=== PATIENT | male | born 1970 | race Caucasian/White ===

== ENCOUNTER 2017-02-13 18:06 | Emergency (ER) | payer OTHER ==
--- NOTE | 2017-02-13 18:31 | EDM.PDOC ---
ED HPI GENERAL MEDICAL PROBLEM - General Chief Complaint: Lower Extremity Injury/Pain Stated Complaint: PAIN LT TOE Time Seen by Provider: 02/13/17 18:12 - History of Present Illness INITIAL COMMENTS - FREE TEXT/NARRATIVE: HISTORY AND PHYSICAL: History of present illness: The patient is a 46-year-old male who presents with complaints of pain to his left great toe which started yesterday after a piece of steel fell onto it. He denies other toe injuries and the remainder of the foot is also nontender. He did elevate the area and has taken one dose of Tylenol and ibuprofen but is here for evaluation. As no other systemic complaints and no other complaints of injuries as a result of these events yesterday Review of systems: As per history of present illness and below otherwise all systems reviewed and negative. Past medical history: As per history of present illness and as reviewed below otherwise noncontributory. Surgical history: As per history of present illness and as reviewed below otherwise noncontributory. Social history: No reported history of drug or alcohol abuse. Family history: As per history of present illness and as reviewed below otherwise noncontributory. Physical exam: General: Well-developed well-nourished male mildly overweight nontoxic-appearing HEENT: Atraumatic, normocephalic, negative for conjunctival pallor or scleral icterus, mucous membranes moist, throat clear, neck supple, nontender, trachea midline. Lungs: Clear to auscultation, breath sounds equal bilaterally, chest nontender. Heart: S1S2, regular, negative for clicks, rubs, or JVD. Abdomen: Soft, nondistended, nontender. NABS Pelvis: Stable nontender. Genitourinary: Deferred. Rectal: Deferred. Extremities: Atraumatic except for the left great toe which is diffusely ecchymotic and swollen and mildly tender at the first phalanx area but not at the MTP. The remainder of the foot is nontender without bony deformities as are toes 2 through 5. Proximally there is no tenderness or deformity the ankle leg or hip. The legs are, negative for cords or calf pain. Neurovascular unremarkable. Neuro: Awake, alert, oriented. Cranial nerves II through XII unremarkable. Cerebellum unremarkable. Motor and sensory unremarkable throughout. Exam nonfocal. Diagnostics: X-ray left great toe Therapeutics: Patient deferred medications Steve tape toes postop shoe Impression: Left great toe fracture Definitive disposition and diagnosis as appropriate pending reevaluation and review of above. - Related Data Allergies Allergy/AdvReac Type Severity Reaction Status Date / Time No Known Allergies Allergy Verified 02/13/17 18:15 Home Meds: Home Meds . [No Known Home Meds] 02/13/17 [History] Past Medical History - Past Health History Medical/Surgical History: Denies Medical/Surgical History HEENT History: Reports: None Cardiovascular History: Reports: None Respiratory History: Reports: None Gastrointestinal History: Reports: None Genitourinary History: Reports: None Musculoskeletal History: Reports: None Neurological History: Reports: None Psychiatric History: Reports: None Endocrine/Metabolic History: Reports: Other (See Below) Other Endocrine/Metabolic History: Hypoglycemia Hematologic History: Reports: None Immunologic History: Reports: None Oncologic (Cancer) History: Reports: None Dermatologic History: Reports: None - Infectious Disease History Infectious Disease History: Reports: None - Past Surgical History Head Surgeries/Procedures: Reports: None Musculoskeletal Surgical History: Reports: Other (See Below) Other Musculoskeletal Surgeries/Procedures:: left leg surgery Social & Family History - Family History Family Medical History: Noncontributory - Tobacco Use Smoking Status *Q: Never Smoker Years of Tobacco use: 25 Packs/Tins Daily: 2 Used Tobacco, but Quit: No Second Hand Smoke Exposure: Yes - Caffeine Use Caffeine Use: Reports: Coffee Caffeine Use Comment: 10 cups daily - Alcohol Use Days Per Week of Alcohol Use: 1 Number of Drinks Per Day: 4 Total Drinks Per Week: 4 - Recreational Drug Use Recreational Drug Use: No Review of Systems - Review of Systems Review Of Systems: ROS reveals no pertinent complaints other than HPI. Trauma Exam - Physical Exam Exam: See Below (See dictation) Course - Vital Signs Last Recorded V/S: Last Vital Signs Temp 36.1 C 02/13/17 18:16 Pulse 51 L 02/13/17 18:16 Resp 18 02/13/17 18:16 BP 124/88 02/13/17 18:16 Pulse Ox 95 02/13/17 18:16 - Orders/Labs/Meds Orders: Active Orders 24 hr Category Date Time Status Toes Great Toe Lt TA [CR] Stat Exams 02/13/17 18:27 Taken DME for Discharge [COMM] Stat Oth 02/13/17 19:01 Ordered Departure - Departure Time of Disposition: 19:02 Disposition: Home, Self-Care 01 Condition: good Clinical Impression: Fracture of toe of left foot Qualifiers: Encounter type: initial encounter Toe: great toe Fracture type: closed Phalanx : proximal Fracture alignment: displaced Qualified Code(s): S92.412A - Displaced fracture of proximal phalanx of left great toe, initial encounter for closed fracture - Discharge Information Forms: ED Department Discharge Additional Instructions: The following information is given to patients seen in the emergency department who are being discharged to home. This information is to outline your options for follow-up care. We provide all patients seen in our emergency department with a follow-up referral. The need for follow-up, as well as the timing and circumstances, are variable depending upon the specifics of your emergency department visit. If you don't have a primary care physician on staff, we will provide you with a referral. We always advise you to contact your personal physician following an emergency department visit to inform them of the circumstance of the visit and for follow-up with them and/or the need for any referrals to a consulting specialist. The emergency department will also refer you to a specialist when appropriate. This referral assures that you have the opportunity for followup care with a specialist. All of these measure are taken in an effort to provide you with optimal care, which includes your followup. Under all circumstances we always encourage you to contact your private physician who remains a resource for coordinating your care. When calling for followup care, please make the office aware that this follow-up is from your recent emergency room visit. If for any reason you are refused follow-up, please contact the [facility] emergency department at and ask to speak to the emergency department charge nurse. [facility] Specialty clinic- Podiatry [address] [place] [id number] Fax: [phone] Dr Ginger Norris [address] [place] [address] [id number] [facility] Primary care- Internal Medicine and Family [facility] [address] [place] [address] Ice and elevate the toe is much possible and wear postop shoe. Please call and followup with one of our regulatory affairs portfolio leader for further care and evaluation and return to ER as needed and as discussed. Use [id number] Tylenol or Profen as needed and add the stronger pain medication but only take that while you're at home - My Orders Last 24 Hours: My Active Orders 02/13/17 18:27 Toes Great Toe Lt TA [CR] Stat 02/13/17 19:01 DME for Discharge [COMM] Stat - Assessment/Plan Last 24 Hours: My Active Orders 02/13/17 18:27 Toes Great Toe Lt TA [CR] Stat 02/13/17 19:01 DME for Discharge [COMM] Stat
[2017-02-13 19:43] VITALS: BP 118/77
--- NOTE | 2017-02-14 10:16 | CR ---
EXAM DATE: 02/13/17 PATIENT'S AGE: 46 Patient: EDWINA ANTHONY Facility: [place], [place] Site . Site : [id number] Study: XRay Extremity great toe [id number]/17/2017 6:52:26 PM Ordering Physician: Cheryl Dan Final Report: INDICATION: trauma, heavy object fell on toe FINDINGS: Three views of the left toes focusing on the 1st digit show an acute fracture of the midportion of the left 1st proximal phalanx. No other evidence of acute fracture or dislocation. No other bony or soft tissue abnormalities identified. Dictated by Anthony Alexander MD @ 02/13/2017 7:13:45 PM Dictated by: Anthony Alexander MD @ 02/13/2017 19:14:19 (Electronic Signature) Report Signed by Proxy. MTDRachelle
== END 2017-02-13 19:37 | disposition home or self-care (01) ==
LOC: MW.ED 18:06
DX: S92.412A Displaced fracture of proximal phalanx of left great toe, initial encounter for closed fracture (principal); Z98.890 Other specified postprocedural states; W20.8XXA Other cause of strike by thrown, projected or falling object, initial encounter; Y92.69 Other specified industrial and construction area as the place of occurrence of the external cause; Y99.0 Civilian activity done for income or pay
CPT/HCPCS: 73660-26-TA; 73660-TA; 99283

== ENCOUNTER 2017-05-01 09:42 | Day surgery (SDC) | payer OTHER ==
[~2017-05-01 09:42] MED LIST: Lactated Ringers 1,000 ML IV SCH; ceFAZolin 2 GM in Premix Bag 1 BAG IV ONE
--- NOTE | 2017-05-01 10:45 | PCM.PREANE ---
Preanesthetic Assessment - Anesthesia/Transfusion/Family Hx Anesthesia History: Prior Anesthesia Without Reaction Family History of Anesthesia Reaction: No Transfusion History: No Prior Transfusion(s) Intubation History: Unknown - Review of Systems General: No Symptoms Pulmonary: No Symptoms Cardiovascular: No Symptoms Gastrointestinal: No Symptoms Neurological: No Symptoms Other: Reports: None - Physical Assessment NPO Status Date: 04/30/17 NPO Status Time: 22:00 O2 Sat by Pulse Oximetry: 93 Respiratory Rate: 16 Vital Signs: Last Vital Signs Temp 36.3 C 05/01/17 10:24 Pulse 51 L 05/01/17 10:24 Resp 16 05/01/17 10:24 BP 133/81 05/01/17 10:24 Pulse Ox 93 L 05/01/17 10:24 Height: 1.73 m Weight: 109.769 kg ASA Class: 2 Mental Status: Alert & Oriented x3 Airway Class: Mallampati = 2 Dentition: Reports: Dentures (upper and lower) Thyro-Mental Finger Breadths: 3 Mouth Opening Finger Breadths: 3 ROM/Head Extension: Full Lungs: Clear to Auscultation, Normal Respiratory Effort Cardiovascular: Regular Rate, Regular Rhythm - Allergies Allergies/Adverse Reactions: Allergies Allergy/AdvReac Type Severity Reaction Status Date / Time No Known Allergies Allergy Verified 04/29/17 15:32 - Blood Blood Available: No - Anesthesia Plan Pre-Op Medication Ordered: None - Acknowledgements Anesthesia Type Planned: General Anesthesia Pt an Appropriate Candidate for the Planned Anesthesia: Yes Alternatives and Risks of Anesthesia Discussed w Pt/Guardian: Yes Pt/Guardian Understands and Agrees with Anesthesia Plan: Yes PreAnesthesia Questionnaire - Past Health History Medical/Surgical History: Denies Medical/Surgical History HEENT History: Reports: None Other HEENT History: wears glasses, has upper and lower dentures, hx of fx nose Cardiovascular History: Reports: Other (See Below) Other Cardiovascular History: pre-op EKG states " old anteroseptal infarct "....consult with Dr. Rachelle liang Respiratory History: Reports: None Gastrointestinal History: Reports: None Genitourinary History: Reports: None Musculoskeletal History: Reports: Arthritis Other Musculoskeletal History: hx of fx left leg and some fingers Neurological History: Reports: None Psychiatric History: Reports: None Endocrine/Metabolic History: Reports: Hypothyroidism, Obesity/BMI 30+ Other Endocrine/Metabolic History: Hypoglycemia Hematologic History: Reports: None Immunologic History: Reports: None Oncologic (Cancer) History: Reports: None Dermatologic History: Reports: None - Infectious Disease History Infectious Disease History: Reports: None - Past Surgical History Head Surgeries/Procedures: Reports: None HEENT Surgical History: Reports: None Cardiovascular Surgical History: Reports: None GI Surgical History: Reports: Appendectomy Male Surgical History: Reports: None Musculoskeletal Surgical History: Reports: ORIF Other Musculoskeletal Surgeries/Procedures:: left leg above ankle (has hardware) - SUBSTANCE USE Smoking Status *Q: Former Smoker (quit smoking 07/15) Tobacco Use Within Last Twelve Months: Cigarettes Second Hand Smoke Exposure: Yes Days Per Week of Alcohol Use: 1 Number of Drinks Per Day: 4 Total Drinks Per Week: 4 Recreational Drug Use History: No - HOME MEDS Home Medications: Home Meds Levothyroxine [Synthroid] 88 mcg PO DAILY 04/29/17 [History] - CURRENT (IN HOUSE) MEDS Current Meds: Current Medications Lactated Ringer's (Ringers, Lactated) 1,000 mls @ 125 mls/hr IV [facility] Last Admin: 05/01/17 10:21 Dose: 125 mls/hr Discontinued Medications Cefazolin Sodium/Dextrose 2 gm (/ Premix) 50 mls @ 100 mls/hr IV ONETIME ONE Stop: 04/30/17 23:25
[2017-05-01] MEDS ORDERED: Lidocaine 2% 5 ML SDV ONE (11:13)
[2017-05-01] MEDS ORDERED: Midazolam 1 MG/ML 2 ML SDV ONE (11:14)
[2017-05-01] MEDS ORDERED: fentaNYL 100 MCG/2 ML SDV ONE (11:14)
[2017-05-01] MEDS ORDERED: fentaNYL 250 MCG/5 ML SDV ONE (11:14)
[2017-05-01] MEDS ORDERED: Propofol 200 MG/20 ML SDV ONE ×2 (11:14→14:01)
[2017-05-01] MEDS ORDERED: Ondansetron 4 MG/2 ML SDV ONE (11:18)
[2017-05-01] MEDS ORDERED: Ketorolac 30 MG/ML SDV ONE (11:18)
[2017-05-01] MEDS ORDERED: Sodium Chloride 0.9% 20 ML ONE (11:19)
[2017-05-01] MEDS ORDERED: ceFAZolin 1 GM Vial ONE (11:19)
[2017-05-01] MEDS ORDERED: Bupivacaine 0.5% 30 ML SDV ONE (12:55)
[2017-05-01] MEDS ORDERED: fentaNYL 100 MCG/2 ML SDV IVPUSH PRN (13:56)
--- NOTE | 2017-05-01 14:01 | PN ---
IDENTIFICATION: The patient is a 46-year-old male. DATE OF SURGERY: May 01, 2017. PREOPERATIVE DIAGNOSIS: Displaced fracture of the proximal phalanx of the hallux of the left foot. PLANNED PROCEDURE: Open reduction with internal fixation of the displaced fracture of proximal phalanx of the left foot. CONSENT: Signed and in the chart. ANESTHESIA: General. The patient confirms n.p.o. since midnight. HISTORY AND PHYSICAL: Completed by Dr. Jimeenz, who is the patient's skeiner, with no contraindications to surgery. ALLERGIES: No known allergies. CURRENT MEDICATIONS: Levothyroxine sodium 88 mcg oral tablet, one tablet daily. MEDICAL HISTORY: No significant past medical history other than surgical history, which is a history of appendectomy. LABORATORY DATA: Labs were last taken on March 13, 2017. Urinalysis was unremarkable. Red blood cell count 4.65, white blood cell count 4.56, hemoglobin 14.9, and hematocrit 44.3. PTT 26.8 seconds. Sodium 141, potassium 4.3, chloride 109, CO2 24, BUN 20, creatinine 1.2, and random glucose 81. The patient had an unremarkable chest x-ray. 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 After further assessment, skeiner deemed the patient to be low risk for this intermediate risk surgery and no further cardiac testing was necessary. The patient is a smoker and has been counseled on that. Patient presents for ORIF of proximal phalanx of left hallux. No contraindications to surgery noted and no guarantees expressed or implied. GERONIMO ENG /[id number] MTDD
--- NOTE | 2017-05-01 15:05 | PCM.OPNOTE ---
- General Post-Op/Procedure Note Date of Surgery/Procedure: 05/01/17 Operative Procedure(s): ORIF left hallux proximal phalanx fracture Findings: consistent with diagnosis Pre Op Diagnosis: left hallux proximal phalanx fracture Post-Op Diagnosis: hallux proximal phalanx fracture Anesthesia Technique: General LMA Primary Surgeon: Marcio Norris Anesthesia Provider: Ludwig Florez Pathology: none EBL in mLs: 5 Complications: none Condition: Good Free Text/Narrative:: materials: 4-0 vicryl, 4-0 prolene, 3.5 x 16 mm Minco non-locking screw, fully threaded injectables: 6 cc 0.5% marcaine plain
--- NOTE | 2017-05-01 15:40 | PCM.POSTAN ---
POST ANESTHESIA ASSESSMENT - MENTAL STATUS Mental Status: Alert - RESPIRATORY Respiratory Status: Respiratory Rate WNL, Airway Patent, O2 Saturation Stable - CARDIOVASCULAR CV Status: Pulse Rate WNL, Blood Pressure Stable, Elevated Pulse Rate - GASTROINTESTINAL GI Status: No Symptoms - POST OP HYDRATION Hydration Status: Adequate & Stable - OBSERVATIONS Free Text/Narrative:: NO anesthesia related issues at this time.
--- NOTE | 2017-05-01 15:57 | PCM48HPAN ---
Post Anesthesia Note - EVALUATION WITHIN 48HRS OF ANESTHETIC Vital Signs in Normal Range: Yes Patient Participated in Evaluation: Yes Respiratory Function Stable: Yes Airway Patent: Yes Cardiovascular Function Stable: Yes Hydration Status Stable: Yes Pain Control Satisfactory: Yes Nausea and Vomiting Control Satisfactory: Yes Mental Status Recovered: Yes - COMMENTS/OBSERVATIONS Free Text/Narrative:: Pt comfortable and no anesthesia related issues.
--- NOTE | 2017-05-01 16:26 | CR ---
EXAMINATION: Left foot HISTORY: ORIF COMPARISON: 02/13/2017 TECHNIQUE: 2 views FINDINGS/IMPRESSION: Operative control films demonstrate a single screw fixating a fracture through the mid aspect of the proximal first phalanx.
[2017-05-01 16:37] VITALS: BP 112/84
--- NOTE | 2017-05-02 01:01 | OR ---
SURGEON: Marcio Norris DPM DATE OF PROCEDURE: 05/01/2017 IDENTIFICATION: The patient is a 46-year-old male. PREOPERATIVE DIAGNOSIS: Fracture of the proximal phalanx of the hallux left foot. POSTOPERATIVE DIAGNOSIS: Fracture of the proximal phalanx of the hallux left foot. PROCEDURE: Open reduction and internal fixation of fracture of the proximal phalanx of the hallux left foot. ANESTHESIA: General. COMPLICATIONS: None. SPECIMENS: None. ESTIMATED BLOOD LOSS: 5 mL. MATERIALS: 4-0 Vicryl, 3-0 Prolene, and one Sutter 3.5 mm x 16 mm nonlocking screw. INJECTABLES: 6 mL of 0.5% Marcaine plain. INDICATIONS FOR THE PROCEDURE: The patient is a 46-year-old male, who had a workplace injury resulting in a displaced fracture at the time of his left great toe. He was initially seen by me in the office in approximately 1-1/2 to 2 months ago and closed reduction was attempted but deemed to be insufficient, and I strongly advised the patient that he would recover optimally and faster with surgical treatment. The patient initially deferred surgery and later due to pain and lack of progress in healing, opted for surgery and was referred to the agricultural produce sorter for further evaluation and a cardiac clearance. Despite the fact that the patient was now partially healed, this fracture in a suboptimal position, surgical intervention and reinforcement across the fracture line with the screw is thought to offer the patient the best option for a more functional and less painful toe. DESCRIPTION OF THE PROCEDURE: The patient was brought to the operating room and underwent general anesthesia without any significant difficulty. He was placed in a supine position on the operating table and a tourniquet over the distal leg just above the malleoli was placed around the left leg. The left lower extremity was prepped in normal fashion, limited to the foot area of the left foot and it was draped appropriately. Tourniquet was inflated to a pressure of 250 mmHg. The dorsum of the left great toe had previously been marked with a marking pen prior to inflation of the tourniquet and a linear incision was made on the dorsum of the left great toe beginning at the 1st metatarsophalangeal joint and extending to the interphalangeal joint of the toe. The incision line was placed just medial to the extensor hallucis longus tendon. Dissection was carried down to the level of bone with care being taken to retract the tendon away. The tendon itself was undermined using sharp and blunt dissection to enable better visualization of the fracture site. I determined that the fracture site was partially healed and in an offset position with a defect now present on the medial and lateral sides of the bone of the proximal phalanx of the hallux of the left foot. However due to the approximation of the bone that has taken place over the last two months since the injury, I determined that reinforcing the bone was the best approach and that this should be done with a single lag screw. A screw hole was drilled from distal medial to proximal lateral through the proximal phalanx of the hallux of the left foot and after measuring a 3.5 mm x 16 mm screw was inserted. We should also note that prior to this all, nonviable tissue and bone was debrided from the fracture site on both the medial and lateral aspect as well as on the superior aspect as well to a small degree. The placement of the screw was verified with intraoperative fluoroscopy and judged to be excellent. The entire area was flushed with copious amounts of normal saline and the area was dabbed dry in preparation for layered closure. The closure was obtained with 4-0 Vicryl suture followed by 4-0 Prolene sutures over the skin. A 6 mL of 0.5% Marcaine plain was infiltrated above the surgical site and the site was dressed with Betadine-soaked Xeroform gauze, 4x4 gauze, Kerlix roll, and an Ren bandage. The patient had a prompt hyperemic response following deflation of the tourniquet of the left foot. The patient was brought to the recovery room in stable condition. Then, the patient will be discharged with written and verbal instructions for care of the left foot and follow up in my office. GERONIMO / ALBERTINA /[id number] MALA
== END 2017-05-01 16:15 | disposition home or self-care (01) ==
LOC: MW.SDS 09:42
PROVIDERS: ATTEND Podiatrist Foot & Ankle Surgery
DX: S92.412A Displaced fracture of proximal phalanx of left great toe, initial encounter for closed fracture (principal); F41.9 Anxiety disorder, unspecified; E03.9 Hypothyroidism, unspecified; Z90.49 Acquired absence of other specified parts of digestive tract; Z87.891 Personal history of nicotine dependence; Z79.899 Other long term (current) drug therapy; W22.8XXA Striking against or struck by other objects, initial encounter
CPT/HCPCS: 28505; 76000; J0690; J1885; J2250; J2405; J3010; J7120; 01480; C1713; J2704

== ENCOUNTER 2019-07-21 02:24 | Emergency (ER) | payer BC ==
--- NOTE | 2019-07-21 02:34 | EDM.PDOC ---
ED HPI GENERAL MEDICAL PROBLEM - General Chief Complaint: Chest Pain Stated Complaint: POSSIBLE BROKEN RIBS Time Seen by Provider: 07/21/19 02:30 - History of Present Illness INITIAL COMMENTS - FREE TEXT/NARRATIVE: HISTORY AND PHYSICAL: History of present illness: Patient's 48-year-old white male presents with concern of right rib injury this occurred with an associated fall tonight he denies any head or neck pain or trauma denies shortness of breath nausea vomiting abdominal pain fever chills or other concern Review of systems: As per history of present illness and below otherwise all systems reviewed and negative. Past medical history: As per history of present illness and as reviewed below otherwise noncontributory. Surgical history: As per history of present illness and as reviewed below otherwise noncontributory. Social history: No reported history of drug or alcohol abuse. Family history: As per history of present illness and as reviewed below otherwise noncontributory. Physical exam: HEENT: Atraumatic, normocephalic, pupils reactive, negative for conjunctival pallor or scleral icterus, mucous membranes moist, throat clear, neck supple, nontender, trachea midline. Lungs: Clear to auscultation, breath sounds equal bilaterally, chest nonlocalized tenderness right ribs in the midaxillary line 4,5'6 region. No crepitation or point tenderness Heart: S1S2, regular, negative for clicks, rubs, or JVD. Abdomen: Soft, nondistended, nontender. Negative for masses or hepatosplenomegaly. Negative for costovertebral tenderness. Pelvis: Stable nontender. Genitourinary: Deferred. Rectal: Deferred. Extremities: Atraumatic, negative for cords or calf pain. Neurovascular unremarkable. Neuro: Awake, alert, oriented. Cranial nerves II through XII unremarkable. Cerebellum unremarkable. Motor and sensory unremarkable throughout. Exam nonfocal. Diagnostics: X-ray chest with right ribs Therapeutics: Tylenol 1 g by mouth Impression: #1 right rib injury Definitive disposition and diagnosis as appropriate pending reevaluation and review of above. Right Chest Pain Score (Numeric/FACES): 2 - Related Data Allergies Allergy/AdvReac Type Severity Reaction Status Date / Time No Known Allergies Allergy Verified 07/21/19 02:41 Home Meds: Home Meds Levothyroxine [Synthroid] 100 mcg PO DAILY 04/29/17 [History] Past Medical History - Past Health History Medical/Surgical History: Denies Medical/Surgical History HEENT History: Reports: None Other HEENT History: wears glasses, has upper and lower dentures, hx of fx nose Cardiovascular History: Reports: None Other Cardiovascular History: pre-op EKG states " old anteroseptal infarct "....consult with Dr. Rachelle liang Respiratory History: Reports: None Gastrointestinal History: Reports: None Genitourinary History: Reports: None Musculoskeletal History: Reports: None Other Musculoskeletal History: hx of fx left leg and some fingers Neurological History: Reports: None Psychiatric History: Reports: None Endocrine/Metabolic History: Reports: Other (See Below) Other Endocrine/Metabolic History: Hypoglycemia Hematologic History: Reports: None Immunologic History: Reports: None Oncologic (Cancer) History: Reports: None Dermatologic History: Reports: None - Infectious Disease History Infectious Disease History: Reports: None - Past Surgical History Musculoskeletal Surgical History: Reports: Other (See Below) Social & Family History - Family History Family Medical History: Noncontributory - Caffeine Use Caffeine Use: Reports: Coffee Caffeine Use Comment: 10 cups daily ED ROS GENERAL - Review of Systems Review Of Systems: ROS reveals no pertinent complaints other than HPI. ED EXAM, GENERAL - Physical Exam Exam: See Below (See dictation) Course - Vital Signs Last Recorded V/S: Last Vital Signs Temp 36.1 C 07/21/19 03:45 Pulse 85 07/21/19 03:45 Resp 18 07/21/19 03:45 BP 112/56 L 07/21/19 03:45 Pulse Ox 94 L 07/21/19 03:45 Departure - Departure Time of Disposition: 22:50 Disposition: Home, Self-Care 01 Clinical Impression: Rib contusion - Discharge Information Instructions: Rib Contusion Referrals: PCP,None [Primary Care Provider] - Forms: ED Department Discharge
--- NOTE | 2019-07-21 03:21 | CR ---
INDICATION: Pain after fall TECHNIQUE: Chest and right ribs 3 views, 4 films. COMPARISON: None FINDINGS: Cardiovascular and mediastinum: Normal heart size with mild aortic tortuosity. Lungs and pleural spaces: Lungs are clear. No sign of infiltrate or mass. No sign of pleural effusion. No pneumothorax. Bones and soft tissues: Detailed oblique images of the right ribs demonstrate no fractures or bone lesions. IMPRESSION: Unremarkable chest and right ribs. Dictated by Edwar Knutson MD @ Jul 21 2019 3:17AM Signed by Dr. Edwar Knutson @ Jul 21 2019 3:19AM
[2019-07-21 03:53] VITALS: BP 112/56; PULSE 85
== END 2019-07-21 03:45 | disposition home or self-care (01) ==
LOC: MW.ED 02:24
DX: S20.211A Contusion of right front wall of thorax, initial encounter (principal); W18.30XA Fall on same level, unspecified, initial encounter
CPT/HCPCS: 71101-26-RT; 71101-RT; 99283-25

== ENCOUNTER 2019-12-08 20:34 | Observation (INO) | payer BC ==
--- NOTE | 2019-12-08 20:55 | EDM.PDOC ---
ED HPI GENERAL MEDICAL PROBLEM - General Chief Complaint: Neurological Problem Stated Complaint: EMS ARRIVAL - SEIZURE Time Seen by Provider: 12/08/19 20:44 Source of Information: Reports: Patient, Family History Limitations: Reports: No Limitations - History of Present Illness INITIAL COMMENTS - FREE TEXT/NARRATIVE: 49-year-old male past medical history of appendicitis, thyroid disease taking 100 mcg of thyroxine daily presenting with seizure-like activity. Patient's spouse reports that they were watching TV and the patient had a 5 or 10-minute tonic-clonic type of seizure. This resolved about the time that EMS arrived after that he was somewhat combative and was given 10 mg of Haldol, 50 mg of Benadryl, and several milligrams of Ativan. Patient is awake and conversational the emergency department. The patient is amnestic to the event. Patient denies any current chest pain, headache, vision changes, weakness, numbness, confusion, paresthesia, change in bowel or bladder habits. Patient denies any incontinence. Patient denies any history of seizures and denies any recent trauma. His spouse corroborates this. His spouse however endorses 2 or 3 episodes a year of what they call "dj vu" where the patient stares off into space and is difficult to communicate with. These have been less frequent in the last year and it been present for about 4 years in total. The patient has not previously seen a neurologist. 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 - Related Data Allergies Allergy/AdvReac Type Severity Reaction Status Date / Time No Known Allergies Allergy Verified 12/09/19 02:27 Home Meds: Home Meds Levothyroxine [Synthroid] 100 mcg PO DAILY 04/29/17 [History] levETIRAcetam [Keppra] 500 mg PO BID #60 tablet 12/09/19 [Rx] Past Medical History - Past Health History Medical/Surgical History: Denies Medical/Surgical History HEENT History: Reports: None Other HEENT History: wears glasses, has upper and lower dentures, hx of fx nose Cardiovascular History: Reports: None Other Cardiovascular History: pre-op EKG states " old anteroseptal infarct "....consult with Dr. Rachelle liang Respiratory History: Reports: None Gastrointestinal History: Reports: None Genitourinary History: Reports: None Musculoskeletal History: Reports: None Other Musculoskeletal History: hx of fx left leg and some fingers Neurological History: Reports: None Psychiatric History: Reports: None Endocrine/Metabolic History: Reports: Other (See Below) Other Endocrine/Metabolic History: Hypoglycemia Hematologic History: Reports: None Immunologic History: Reports: None Oncologic (Cancer) History: Reports: None Dermatologic History: Reports: None - Infectious Disease History Infectious Disease History: Reports: None - Past Surgical History Musculoskeletal Surgical History: Reports: Other (See Below) Social & Family History - Family History Family Medical History: Noncontributory - Caffeine Use Caffeine Use: Reports: Coffee Caffeine Use Comment: 10 cups daily ED ROS GENERAL - Review of Systems Review Of Systems: Comprehensive ROS is negative, except as noted in HPI. ED EXAM, NEURO - Physical Exam Exam: See Below Text/Narrative:: General: No acute distress. Comfortable. Heent: Examination revealed no pallor, no icterus, no lymphadenopathy. The patient normal posterior pharynx, moist mucous membranes. Neck: Supple. No JVD. No rigidity. Heart: Normal rate and rhythm. No murmurs appreciated. Lungs: Bilaterally clear to auscultation. No focal findings. Abdomen: The patient had bowel sounds present, nontender, nondistended, soft, no CVA tenderness. Neuro: Pt alert and oriented to person and place. PERRL. EOMI. Strength maintained in all four extremities. Good cost coordinator strength. Normal phonation without evidence of receptive or expressive pathology. No facial droop. assistant coach 2-12 intact. Normal reflexes BLEs (2+ patellar). Negative clonus. Normal power hip flexion. Normal finger to nose and rapid alternating hand movements bilaterally. Normal power below knee, plntar and dorsiflexion of the foot. No clonus BLEs. Skin: Exposed areas appeared normally perfused, warm, normal color with no meaningful rashes or lesions. Extremities: Peripheral examination revealed no pedal edema. Peripheral pulses were 2+. EKG INTERPRETATION EKG Interpretation Comments: EKG time 8:45 PM. Sinus rhythm at 95 bpm. Normal axis. Normal intervals. QTc long at 537. Q waves aVR and V1 and V2. Questionable Q waves in lead III. No significant ST elevation or ST depression noted. Course - Vital Signs Text/Narrative:: Patient with history of seizure-like activity briefly, more like absence seizure 's, however presented tonight with a 5 or 10-minute grand mal type seizure. Typical post stromal confusion minimal combativeness. Back to baseline now. Admission for overnight monitoring. Outpatient management of this new seizure- like activity. CT scan negative for acute disease. No clear drivers of this event, no daily alcohol use with withdrawal, no medications which should lower seizure threshold, no loss of sleep recently. Neurological examination after event. Last Recorded V/S: Last Vital Signs Temp 98.6 F 12/09/19 07:20 Pulse 65 12/09/19 07:20 Resp 16 12/09/19 07:20 BP 112/64 12/09/19 07:20 Pulse Ox 91 L 12/09/19 07:56 - Orders/Labs/Meds Labs: Laboratory Tests 12/08/19 12/08/19 12/08/19 Range/Units 21:28 21:28 21:28 WBC 5.43 (4.0-11.0) K/uL RBC 5.01 (4.50-5.90) M/uL Hgb 15.9 (13.0-17.0) g/dL Hct 47.4 (38.0-50.0) % MCV 94.6 (80.0-98.0) fL MCH 31.7 (27.0-32.0) pg MCHC 33.5 (31.0-37.0) g/dL RDW Std Deviation 44.7 (28.0-62.0) fl RDW Coeff of Selena 13 (11.0-15.0) % Plt Count 215 (150-400) K/uL MPV 9.20 (7.40-12.00) fL Neut % (Auto) 73.2 (48.0-80.0) % Lymph % (Auto) 17.3 (16.0-40.0) % Ogle % (Auto) 6.4 (0.0-15.0) % Eos % (Auto) 2.4 (0.0-7.0) % Baso % (Auto) 0.7 (0.0-1.5) % Neut # (Auto) 4.0 (1.4-5.7) K/uL Lymph # (Auto) 0.9 (0.6-2.4) K/uL Ogle # (Auto) 0.4 (0.0-0.8) K/uL Eos # (Auto) 0.1 (0.0-0.7) K/uL Baso # (Auto) 0.0 (0.0-0.1) K/uL Nucleated RBC % 0.0 /100WBC Nucleated RBCs # 0 K/uL Sodium 143 (136-148) mmol/L Potassium 4.4 (3.5-5.1) mmol/L Chloride 108 H (98-107) mmol/L Carbon Dioxide 19.7 L (21.0-32.0) mmol/L BUN 13 (7.0-18.0) mg/dL Creatinine 1.3 (0.8-1.3) mg/dL Est Cr Clr Drug Dosing 65.04 mL/min Estimated GFR (MDRD) 58.2 ml/min Glucose 96 (74-106) mg/dL Calcium 8.7 (8.5-10.1) mg/dL Total Bilirubin 0.4 (0.2-1.0) mg/dL AST 42 H (15-37) IU/L ALT 81 H (14-63) IU/L Alkaline Phosphatase 80 (46-116) U/L Total Protein 6.9 (6.4-8.2) g/dL Albumin 3.8 (3.4-5.0) g/dL Globulin 3.1 (2.6-4.0) g/dL Albumin/Globulin Ratio 1.2 (0.9-1.6) TSH 3rd Generation 3.64 (0.36-3.74) uIU/mL Ethyl Alcohol <3 mg/dL Meds: Medications Discontinued Medications Generic Name Dose Route Start Last Admin Trade Name Freq PRN Reason Stop Dose Admin Acetaminophen 650 mg 12/09/19 07:56 Tylenol PO Q4H PRN Pain (Mild 1-3)/fever Levetiracetam 1,000 mg/ 110 mls @ 440 mls/hr 12/08/19 22:30 12/08/19 23:24 Dextrose/Water IV 440 mls/hr Q12H ALEXANDRU Administration Levetiracetam 500 mg 12/09/19 12:00 Keppra PO BID ALEXANDRU Levothyroxine Sodium 100 mcg 12/09/19 09:00 Synthroid PO DAILY ALEXANDRU Levothyroxine Sodium 100 mcg 12/10/19 07:30 Synthroid PO ACBREAKFAST ALEXANDRU Lorazepam 1 - 3 mg 12/09/19 01:34 Ativan IVPUSH Q4H PRN Withdrawal Symptoms Protocol Lorazepam 1 - 2 mg 12/09/19 01:37 Ativan PO Q4H PRN Withdrawal Symptoms Protocol Ondansetron HCl 4 mg 12/09/19 07:56 Zofran IVPUSH Q4H PRN Nausea Sodium Chloride 2.5 ml 12/09/19 07:56 Saline Flush FLUSH ASDIRECTED PRN Keep Vein Open Departure - Departure Time of Disposition: 21:45 Disposition: DC/Tfer to SNF 03 Clinical Impression: Seizure-like activity - Discharge Information Sepsis Event Note - Evaluation Sepsis Screening Result: No Definite Risk - Focused Exam Date Exam was Performed: 12/10/19 Time Exam was Performed: 19:22
--- NOTE | 2019-12-08 21:34 | CT ---
INDICATION: Seizure TECHNIQUE: CT head without contrast. COMPARISON: None FINDINGS: CSF spaces: Within normal limits for age. Brain parenchyma: The urrutia-white differentiation is normal. No sign of mass, hemorrhage, or midline shift. Skull base and calvarium: The visualized paranasal sinuses and mastoid air cells demonstrate no acute or significant findings. The visualized orbits are grossly unremarkable. No skull fractures. IMPRESSION: Unremarkable noncontrast head CT. Dictated by Jacek Dick MD @ 12/08/2019 9:34:28 PM Please note that all CT scans at this facility use dose modulation, iterative reconstruction, and/or weight-based dosing when appropriate to reduce radiation dose to as low as reasonably achievable. Dictated by: Jacek Dick MD @ 12/08/2019 21:34:33 (Electronically Signed)
[2019-12-08 21:55] LABS: BLOOD UREA NITROGEN,BUN 13 mg/dL (7.0-18.0); CARBON DIOXIDE,CO2 19.7 mmol/L (21.0-32.0); CHLORIDE,CL 108 mmol/L (98-107); GLUCOSE RANDOM 96 mg/dL (74-106); POTASSIUM,K 4.4 mmol/L (3.5-5.1); SODIUM,NA 143 mmol/L (136-148)
[2019-12-08] MEDS ORDERED: Doxycycline 100 MG Cap PO ONE (21:58)
[2019-12-09] MEDS ORDERED: LORazepam 2 MG/ML SDV IVPUSH PRN (01:34)
[2019-12-09] MEDS ORDERED: LORazepam 1 MG Tab PO PRN (01:37)
[2019-12-09 05:11] VITALS: PULSE 65
[2019-12-09] MEDS ORDERED: Acetaminophen 325 MG Tab PO PRN (07:56)
[2019-12-09] MEDS ORDERED: Ondansetron 4 MG/2 ML SDV IVPUSH PRN (07:56)
[2019-12-09] MEDS ORDERED: Sodium Chloride 0.9% 2.5 ML Syringe FLUSH PRN (07:56)
--- NOTE | 2019-12-09 08:52 | PCM.HP.2 ---
H&P History of Present Illness - General Date of Service: 12/09/19 Admit Problem/Dx: Admission Diagnosis/Problem Admission Diagnosis/Problem Seizure Source of Information: Patient History Limitations: Reports: No Limitations - History of Present Illness Initial Comments - Free Text/Narative: This 49 year old male with pmh of hypothryoidisma presented to the ED with complaints of seizure like activity. He is unaware of events. He reports prior to this happening he was otherwise feeling well. He then started to feel weird, and have a odd sensation come over him. He felt very hot and flushed, then remembers nothing. Per ED note, patient's spouse reports that they were watching TV and the patient had a 5 or 10-minute tonic-clonic type of seizure. She then called EMS. After seizure like activity he was combative and was given Haldol, Benadryl and Ativan. He otherwise reports he has been well, no fevers chills, URI symptoms or neck pain. No headache vision changes or other neurologic deficits. He denies recent head trauma or injury. He denies alcohol use, very rarely once a month if that, no recreational drug use and quit tobacco use 5+ years ago. 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 No family history of seizures. No mental health concerns, no hx of anxiety, depression or PTSD. He denies every seeing a neurologist or being worked up for those events. Nothing like this tonic clonic event has happened before. In the ED labwork WNL. mild elevated in AST ALT 42 and 81 respectively. ETOH less than 3. Head CT negative for any intracranial process. VS stable. EKG SR. He was loaded with Keppra in the ED. He will be admitted for seizures. - Related Data Allergies/Adverse Reactions: Allergies Allergy/AdvReac Type Severity Reaction Status Date / Time No Known Allergies Allergy Verified 12/09/19 02:27 Home Medications: Home Meds Levothyroxine [Synthroid] 100 mcg PO DAILY 04/29/17 [History] levETIRAcetam [Keppra] 500 mg PO BID #60 tablet 12/09/19 [Rx] Past Medical History - Past Health History Medical/Surgical History: Denies Medical/Surgical History HEENT History: Reports: None Other HEENT History: wears glasses, has upper and lower dentures, hx of fx nose Cardiovascular History: Reports: None. Denies: Afib, Blood Clots/VTE/DVT, CAD, Heart Failure, Hypertension, CT, Stents Respiratory History: Reports: None. Denies: Asthma, COPD, SOB Gastrointestinal History: Reports: None. Denies: GERD Genitourinary History: Reports: None Musculoskeletal History: Reports: Fracture Other Musculoskeletal History: hx of fx left leg and some fingers Neurological History: Reports: Seizure (renetta vu events). Denies: Brain Injury, Concussion, CVA, Head Trauma, TIA Psychiatric History: Reports: None. Denies: Addiction, Anxiety, Depression, Schizophrenia Endocrine/Metabolic History: Reports: Hypothyroidism. 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 Hematologic History: Reports: None Immunologic History: Reports: None Oncologic (Cancer) History: Reports: None Dermatologic History: Reports: None - Infectious Disease History Infectious Disease History: Reports: None - Past Surgical History Head Surgeries/Procedures: Reports: None Musculoskeletal Surgical History: Reports: Other (See Below) Social & Family History - Family History Family Medical History: Noncontributory - Tobacco Use Smoking Status *Q: Former Smoker Used Tobacco, but Quit: Yes Month/Year Tobacco Last Used: 2014 - Caffeine Use Caffeine Use: Reports: Coffee Caffeine Use Comment: 10 cups daily - Alcohol Use Alcohol Use History: No Alcohol Use Frequency: Monthly, Rarely (monthly) - Recreational Drug Use Recreational Drug Use: No - Living Situation & Occupation Living situation: Reports: 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 Denies: Fever, Chills, Malaise, Weakness HEENT: Reports: No Symptoms. Denies: Headaches, Sinus Congestion, Vertigo, Visual Changes Pulmonary: Reports: No Symptoms. Denies: Shortness of Breath, Wheezing, Cough, Sputum Cardiovascular: Reports: No Symptoms. Denies: Chest Pain, Lightheadedness, Syncope Gastrointestinal: Reports: No Symptoms. Denies: Abdominal Pain, Black Stool, Bloody Stool, Decreased Appetite, Nausea, Vomiting Genitourinary: Reports: No Symptoms. Denies: Dysuria, Frequency, Burning Musculoskeletal: Reports: No Symptoms. Denies: Neck Pain Skin: Reports: No Symptoms. Denies: Erythema, Wound Psychiatric: Reports: No Symptoms Neurological: Reports: Seizure. Denies: Confusion, Headache, Syncope, Trouble Speaking Hematologic/Lymphatic: Reports: No Symptoms Immunologic: Reports: No Symptoms Exam - Exam Exam: See Below - Vital Signs Vital Signs: Last Vital Signs Temp 98.2 F 12/09/19 05:10 Pulse 65 12/09/19 05:10 Resp 16 12/09/19 05:10 BP 104/68 12/09/19 05:10 Pulse Ox 95 12/09/19 05:10 Weight: 99.019 kg - Exam Quality Assessment: DVT Prophylaxis. No: Supplemental Oxygen General: Alert, Oriented, Cooperative HEENT: Conjunctiva Clear, Mucosa Moist & [place], Posterior Pharynx Clear Neck: Supple, Trachea Midline Lungs: Clear to Auscultation, Normal Respiratory Effort Cardiovascular: Regular Rate, Regular Rhythm GI/Abdominal Exam: Normal Bowel Sounds, Soft, Non-Tender Back Exam: Normal Inspection, Full Range of Motion Extremities: Normal Inspection, Normal Range of Motion, Non-Tender, No Pedal Edema Neurological: Cranial Nerves Intact Neuro Extensive - Mental Status: Alert, Oriented x3 Neuro Extensive - Motor, Sensory, Reflexes: CN II-XII Intact, Normal Gait, Normal Reflexes. No: Pronator Drift (R), Pronator Drift (L), Abnormal Motor, Abn 2 Pt Discrimination, Motor/Sensory Deficits Psychiatric: Alert, Normal Affect, Normal Mood - Patient Data Lab Results Last 24 hrs: Laboratory Results - last 24 hr 12/08/19 12/08/19 12/08/19 Range/Units 21:28 21:28 23:41 WBC 5.43 (4.0-11.0) K/uL RBC 5.01 (4.50-5.90) M/uL Hgb 15.9 (13.0-17.0) g/dL Hct 47.4 (38.0-50.0) % MCV 94.6 (80.0-98.0) fL MCH 31.7 (27.0-32.0) pg MCHC 33.5 (31.0-37.0) g/dL RDW Std Deviation 44.7 (28.0-62.0) fl RDW Coeff of Selena 13 (11.0-15.0) % Plt Count 215 (150-400) K/uL MPV 9.20 (7.40-12.00) fL Neut % (Auto) 73.2 (48.0-80.0) % Lymph % (Auto) 17.3 (16.0-40.0) % Wells % (Auto) 6.4 (0.0-15.0) % Eos % (Auto) 2.4 (0.0-7.0) % Baso % (Auto) 0.7 (0.0-1.5) % Neut # (Auto) 4.0 (1.4-5.7) K/uL Lymph # (Auto) 0.9 (0.6-2.4) K/uL Wells # (Auto) 0.4 (0.0-0.8) K/uL Eos # (Auto) 0.1 (0.0-0.7) K/uL Baso # (Auto) 0.0 (0.0-0.1) K/uL Nucleated RBC % 0.0 /100WBC Nucleated RBCs # 0 K/uL Sodium 143 (136-148) mmol/L Potassium 4.4 (3.5-5.1) mmol/L Chloride 108 H (98-107) mmol/L Carbon Dioxide 19.7 L (21.0-32.0) mmol/L BUN 13 (7.0-18.0) mg/dL Creatinine 1.3 (0.8-1.3) mg/dL Est Cr Clr Drug Dosing 65.04 mL/min Estimated GFR (MDRD) 58.2 ml/min Glucose 96 (74-106) mg/dL POC Glucose 118 H (60-110) mg/dL Calcium 8.7 (8.5-10.1) mg/dL Total Bilirubin 0.4 (0.2-1.0) mg/dL AST 42 H (15-37) IU/L ALT 81 H (14-63) IU/L Alkaline Phosphatase 80 (46-116) U/L Total Protein 6.9 (6.4-8.2) g/dL Albumin 3.8 (3.4-5.0) g/dL Globulin 3.1 (2.6-4.0) g/dL Albumin/Globulin Ratio 1.2 (0.9-1.6) Ethyl Alcohol <3 mg/dL Result Diagrams: 03/10/20 21:28 12/08/19 21:28 Sepsis Event Note - Evaluation Sepsis Screening Result: No Definite Risk - Focused Exam Vital Signs: Vital Signs Temp Pulse Resp BP Pulse Ox 12/09/19 05:10 98.2 F 65 16 104/68 95 12/08/19 23:25 97.6 F 62 17 151/92 H 94 L 12/08/19 23:02 97.1 F 78 18 132/92 H 96 12/08/19 22:16 70 133/94 H 93 L 12/08/19 21:46 77 20 126/88 94 L 12/08/19 21:16 72 121/90 91 L 12/08/19 21:06 100 112/88 Date Exam was Performed: 12/09/19 Time Exam was Performed: 12:30 - Problem List (1) Seizure SNOMED Code(s): 75237365 ICD Code: R56.9 - UNSPECIFIED CONVULSIONS Status: Acute Current Visit: Yes (2) Hypothyroidism SNOMED Code(s): 13406092 ICD Code: E03.9 - HYPOTHYROIDISM, UNSPECIFIED Status: Acute Current Visit : Yes Problem List Initiated/Reviewed/Updated: Yes Orders Last 24hrs: Active Orders 24 hr Category Date Time Status Patient Status [ADT] Stat ADT 12/08/19 22:28 Active CIWAA Assessment [RC] Q4H Care 12/09/19 01:34 Active Cardiac Monitoring [RC] . DIRECTED Care 12/08/19 22:28 Active Intake and Output [RC] QSHIFT Care 12/09/19 07:57 Active Oxygen Therapy [RC] PRN Care 12/09/19 07:56 Active Up With Assistance [RC] ASDIRECTED Care 12/09/19 07:56 Active VTE/DVT Education [RC] PER UNIT ROUTINE Care 12/09/19 07:56 Active Vital Signs [RC] Q4H Care 12/09/19 07:56 Active Regular Diet [DIET] Diet 12/09/19 Breakfast Active TSH [CHEM] Routine Lab 12/09/19 08:00 Received Acetaminophen [Tylenol] Med 12/09/19 07:56 Active 650 mg PO Q4H PRN LORazepam [Ativan] Med 12/09/19 01:37 Active 1 - 2 mg PO Q4H PRN LORazepam [Ativan] Med 12/09/19 01:34 Active 1 - 3 mg IVPUSH Q4H PRN Levothyroxine [Synthroid] Med 12/10/19 07:30 Active 100 mcg PO ACBREAKFAST Ondansetron [Zofran] Med 12/09/19 07:56 Active 4 mg IVPUSH Q4H PRN Sodium Chloride 0.9% [Saline Flush] Med 12/09/19 07:56 Active 2.5 ml FLUSH ASDIRECTED PRN levETIRAcetam [Keppra] Med 12/09/19 12:00 Active 500 mg PO BID Saline Lock Insert [OM.PC] Routine Oth 12/09/19 07:56 Ordered Seizure Precautions [OM.PC] Routine Oth 12/09/19 01:34 Ordered Resuscitation Status Routine Resus Stat 12/09/19 07:56 Ordered Medication Orders Acetaminophen (Tylenol) 650 mg PO Q4H PRN PRN Reason: Pain (Mild 1-3)/fever Levetiracetam (Keppra) 500 mg PO BID ALEXANDRU Levothyroxine Sodium (Synthroid) 100 mcg PO ACBREAKFAST ALEXANDRU Lorazepam (Ativan) 1 - 3 mg IVPUSH Q4H PRN; Protocol PRN Reason: Withdrawal Symptoms Lorazepam (Ativan) 1 - 2 mg PO Q4H PRN; Protocol PRN Reason: Withdrawal Symptoms Ondansetron HCl (Zofran) 4 mg IVPUSH Q4H PRN PRN Reason: Nausea Sodium Chloride (Saline Flush) 2.5 ml FLUSH ASDIRECTED PRN PRN Reason: Keep Vein Open Assessment/Plan Comment:: This 49 year old male admitted with seizures 1. Seizures: - Started on Keppra 500 BID - Previous renetta vu events likely seizure activity - Spoke with Dr Pate, recommended continuing Keppra, outpatient EEG and follow up with Neurology clinic. - Spoke at length with patient regarding driving restrictions after seizure. he understands and verbalizes understanding of NO DRIVING for at least 6 months or until cleared by Neurology. "My will just drive me around, I don't want to harm others." 2. Hypothyroidism: - Check TSH - Continue levothyroxine Code Status: Full Code Dispo: 1 day, possible DC this afternoon Discharge Plan: DOing well this afternoon. No further seizure activity. Complained of rib fractures, with combative nature last night, x ray was done to rule out fracture. R rib xray revealed no acute fracture. Likely muscle strain. COnitnue to limit activity and monitor. If pain worsens return. Try Tylenol and Motrin PRN for pain. Continue Keppra BID. Follow up with PCP in 1 week, Neurology was scheduled. As well as outpatient EEG. - Mortality Measure Prognosis:: Good
[2019-12-09 08:59] VITALS: BP 112/64
[2019-12-09] MEDS ORDERED: Levothyroxine 88 MCG Tab PO SCH (09:00)
--- NOTE | 2019-12-09 11:38 | CR ---
Right ribs: 4 views of the right ribs were obtained. Comparison: Prior right rib exam of 07/21/19. No discrete fracture or other right-sided rib abnormality is appreciated. Impression: 1. No definite right-sided rib abnormality is appreciated. Diagnostic code #1 This report was dictated in MDT
[2019-12-09] MEDS ORDERED: levETIRAcetam 500 MG Tab PO SCH (12:00)
[2019-12-10] MEDS ORDERED: Levothyroxine 100 MCG Tab PO SCH (07:30)
== END 2019-12-09 12:15 | disposition home or self-care (01) ==
LOC: MW.ED 20:34 → MW.MS 22:28
PROVIDERS: ADMIT Student in an Organized Health Care Education/Training Program; ATTEND Student in an Organized Health Care Education/Training Program
DX: R56.9 Unspecified convulsions (principal); E03.9 Hypothyroidism, unspecified; Z79.890 Hormone replacement therapy; Z79.899 Other long term (current) drug therapy; Z87.891 Personal history of nicotine dependence
CPT/HCPCS: 36415; 70450; 71100; 80053; 80307; 82962; 84443; 85025; 93005; 96374; 99285; G0378; J1953; J7060

== ENCOUNTER 2022-12-08 12:07 | Emergency (ER) | payer BC ==
[2022-12-08] MEDS ORDERED: Sodium Chloride 0.9% 10 ML Syringe FLUSH PRN (12:54)
[2022-12-08] MEDS ORDERED: Sodium Chloride 0.9% 2.5 ML Syringe FLUSH PRN (12:54)
[2022-12-08] MEDS ORDERED: Sodium Chloride 0.9% 1,000 ML IV STA (12:55)
[2022-12-08 14:08] LABS: BLOOD UREA NITROGEN,BUN 8 mg/dL (7.0-18.0); CARBON DIOXIDE,CO2 25.3 mmol/L (21.0-32.0); CHLORIDE,CL 107 mmol/L (98-107); GLUCOSE RANDOM 91 mg/dL (74-106); POTASSIUM,K 4.5 mmol/L (3.5-5.1); SODIUM,NA 141 mmol/L (136-148)
[2022-12-08 14:10] LABS: ESTIMATED GFR 72 mL/min (>60)
[2022-12-08] MEDS ORDERED: Iopamidol 755 MG/ML 500 ML Multipack Bottle IVPUSH ONE (14:56)
[2022-12-08 16:54] VITALS: BP 138/93; PULSE 58
== END 2022-12-08 16:51 | disposition home or self-care (01) ==
LOC: MW.ED 12:07
DX: R42 Dizziness and giddiness (principal); D75.1 Secondary polycythemia; F17.210 Nicotine dependence, cigarettes, uncomplicated; E03.9 Hypothyroidism, unspecified; Z79.899 Other long term (current) drug therapy
CPT/HCPCS: 36415; 70450; 70496; 70498; 80053; 80305; 80307; 81003; 83735; 84439; 84443; 85014; 85018; 85025; 93005; 96360; 99284; J3490; J7030; Q9967

== ENCOUNTER 2025-04-10 00:31 | Emergency (ER) | payer BC ==
[2025-04-10 00:59] LABS: BASOPHILS ABSOLUTE AUTO 0.11 K/uL (0.00-0.20); BASOPHILS PERCENT AUTO 1.1 % (0.0-1.0); EOSINOPHILS ABSOLUTE AUTO 0.31 K/uL (0.00-0.45); EOSINOPHILS PERCENT AUTO 3.2 % (0.0-6.0); IMMATURE GRAN ABSOLUTE AUTO 0.07 K/uL (0.00-0.05); IMMATURE GRAN PERCENT AUTO 0.7 % (0.0-0.4); LYMPHOCYTES ABSOLUTE AUTO 1.39 K/uL (1.00-4.80); LYMPHOCYTES PERCENT AUTO 14.4 % (24.0-44.0); MEAN PLATELET VOLUME 9.1 fL (9.4-12.4); MONOCYTES ABSOLUTE AUTO 0.78 K/uL (0.00-0.80); MONOCYTES PERCENT AUTO 8.1 % (0.0-8.0); NEUTROPHILS ABSOLUTE AUTO 6.98 K/uL (1.80-7.70); NEUTROPHILS PERCENT AUTO 72.5 % (41.0-71.0); NRBC ABSOLUTE 0.00 K/uL (0.00-0.02); NRBC PERCENT 0.0 /100WBC (0.0-0.2); PLATELET COUNT,PLT 141 K/uL (150-400); RED BLOOD CELL COUNT 6.71 M/uL (4.52-5.90); WHITE BLOOD CELL COUNT,WBC 9.64 K/uL (3.9-11.3)
[2025-04-10] MEDS: Iopamidol 755 Mg/ML 100 ML Bottle IVPUSH ONE (01:07)
[2025-04-10 01:11] LABS: INR 1.18 (0.86-1.11); PTT,PARTIAL THROMBOPLSTIN TIME 30.5 SEC (23.9-30.7)
[2025-04-10 01:34] LABS: A/G RATIO 1.1 (0.9-1.6); ALANINE AMINOTRANSFERASE,ALT 41 IU/L (14-63); ASPARTATE AMNIOTRANSFERASE,AST 26 IU/L (15-37); BILIRUBIN TOTAL 1.0 mg/dL (0.2-1.0); BLOOD UREA NITROGEN,BUN 14 mg/dL (7.0-18.0); CARBON DIOXIDE,CO2 27.9 mmol/L (21.0-32.0); CHLORIDE,CL 105 mmol/L (98-107); CREATININE 1.1 mg/dL (0.8-1.3); EST CRCL DRUG DOSING (CG) 72.55 mL/min; GLUCOSE RANDOM 91 mg/dL (74-106); POTASSIUM,K 4.6 mmol/L (3.5-5.1); PRO B-TYPE NATRIUR PEPT,BNPPRO 10 pg/mL (0-125); PROTEIN TOTAL,TP 6.4 g/dL (6.4-8.2); SODIUM,NA 140 mmol/L (136-148); TSH ULTRASENSITIVE 3.68 uIU/mL (0.36-3.74)
[2025-04-10 01:35] LABS: ESTIMATED GFR 79 mL/min (>60); ETHANOL BLOOD MEDICAL < 3.0 mg/dL
[2025-04-10 02:32] LABS: BASE EXCESS VENOUS -1.2 (-2.0-3.0); BICARBONATE,VENOUS 26.0 mEq/L (22-29); PCO2 VENOUS 49.0 mmHG (41-51); PH,VENOUS 7.33 (7.32-7.43); PO2 VENOUS 57.0 mmHG (35-45)
[2025-04-10 02:51] LABS: APPEARANCE,URINE CLEAR; GLUCOSE,URINE NEGATIVE (NEGATIVE); OCCULT BLOOD,URINE NEGATIVE (NEGATIVE)
[2025-04-10 03:00] LABS: AMPHETAMINES SCREEN, URINE NEGATIVE (CUTOFF=500); BUPRENORPHINE SCREEN,URINE NEGATIVE (CUTOFF=10); METHADONE SCREEN, URINE NEGATIVE (CUTOFF=200); METHAMPHETAMINES SCREEN, URINE NEGATIVE (CUTOFF=500); OXYCODONE SCREEN,URINE NEGATIVE (CUT0FF=100); PCP SCREEN,URINE NEGATIVE (CUTOFF=25); THC SCREEN,URINE 20 NG/ML NEGATIVE (CUTOFF=50)
[2025-04-10 04:21] VITALS: BP 137/97; PULSE 65
== END 2025-04-10 03:26 | disposition home or self-care (01) ==
LOC: MW.ED 00:31
DX: I10 Essential (primary) hypertension (principal); D69.6 Thrombocytopenia, unspecified; R41.0 Disorientation, unspecified; H53.9 Unspecified visual disturbance; E03.9 Hypothyroidism, unspecified; R71.8 Other abnormality of red blood cells; Z79.899 Other long term (current) drug therapy; Z79.890 Hormone replacement therapy
CPT/HCPCS: 36415; 70450; 70496; 70498; 71045; 80053; 80143; 80179; 80305; 80307; 81003; 82803; 82947; 83880; 84443; 84484; 85025; 85610; 85730; 93005; 96360; 99285; J7030; Q9967; 93010; 99284